=== PATIENT | female | born 1940 | race Caucasian/White ===

== ENCOUNTER 2017-09-05 05:52 | Inpatient (IN) ==
[2017-09-05] MEDS ORDERED: MAGNESIUM SULF RIDER 2 GM in PREMIX 1 EACH IV PRN (06:55)
[2017-09-05] MEDS ORDERED: DIAZEPAM 5 MG TABLET PO ONE (06:55)
[2017-09-05] MEDS ORDERED: ASPIRIN 325 MG TABLET PO ONE (06:55)
[2017-09-05] MEDS ORDERED: POTASSIUM CHLORIDE RIDER 10 MEQ in PREMIX 1 EACH IV PRN (06:55)
[2017-09-05] MEDS ORDERED: diphenhydrAMINE CAP 25 MG CAPSULE PO ONE (06:55)
[2017-09-05] MEDS ORDERED: DIAZEPAM 5 MG TABLET ONE (07:30)
[2017-09-05] MEDS ORDERED: ASPIRIN 325 MG TABLET ONE (07:30)
[2017-09-05] MEDS ORDERED: LIDOCAINE 1% 20 ML VIAL ONE (07:30)
[2017-09-05] MEDS ORDERED: diphenhydrAMINE CAP 25 MG CAPSULE ONE (07:30)
[2017-09-05 07:43] LABS: Basophils # 0.1 10*3/uL (0.0-0.2); Basophils % 0.5 % (0.0-0.8); Eosinophils # 0.3 10*3/uL (0.0-0.87); Eosinophils % 2.8 % (0.00-10.9); Hematocrit 41.8 VOL% (35.7-47.0); Hemoglobin 14.8 GM/DL (12.0-16.0); Immature Granulocytes % 0.3 %; Immature Granulocytes Absolute 0.03 #; Lymphocytes # 1.8 10*3/uL (1.4-4.0); Lymphocytes % 18.3 % (21.3-54.2); Mean Corpuscular HGB Conc 35.4 GM/DL (32-36); Mean Corpuscular Hemoglobin 33 PG (27-34); Mean Corpuscular Volume 91.9 FL (87-102); Mean Platelet Volume 9.4 FL (9.6-12.0); Monocytes # 0.8 10*3/uL (0.11-0.8); Monocytes % 8.1 % (1.7-12.7); Neutrophils # 6.8 10*3/uL (1.4-7.4); Platelet Count 177 T/CUMM (130-400); Red Blood Count 4.55 MC/CUMM (3.8-5.5); Red Cell Distribution Width 11.9 % (9.3-17.3); White Blood Count 9.8 T/CUMM (4-12)
[2017-09-05] MEDS: SODIUM CHLORIDE 0.9% 1,000 ML IV SCH ×2 (07:43→16:43)
[2017-09-05] MEDS ORDERED: HYDROmorphone 2 MG/1 ML VIAL ONE (07:44)
[2017-09-05] MEDS ORDERED: MIDAZOLAM 2 MG/2 ML VIAL ONE (07:44)
[2017-09-05 07:50] LABS: PT Patient Result 10.9 SECS
[2017-09-05] MEDS ORDERED: HEPARIN 5,000 UNIT/1 ML VIAL ONE (07:56)
[2017-09-05] MEDS ORDERED: VERAPAMIL 5 MG/2 ML VIAL ONE (08:01)
[2017-09-05] MEDS ORDERED: NITROGLYCERIN DRIP 50 MG/250 ML BOTTLE IV ONE (08:01)
[2017-09-05 08:22] LABS: Calcium 9.1 MG/DL (8.5-10.1); Magnesium 2.2 MG/DL (1.8-2.4); Potassium 3.6 MMOL/L (3.5-5.1)
[2017-09-05] MEDS ORDERED: NITROGLYCERIN SL 0.4 MG TABLET SL PRN (08:54)
[2017-09-05] MEDS ORDERED: ZALEPLON 5 MG CAPSULE PO PRN (08:54)
[2017-09-05] MEDS ORDERED: ONDANSETRON 4 MG/2 ML VIAL IV PRN (08:54)
[2017-09-05] MEDS ORDERED: CLOPIDOGREL 300 MG TABLET PO ONE (09:17)
[2017-09-05] MEDS: CYANOCOBALAMIN 500 MCG TABLET PO SCH (12:01)
[2017-09-05] MEDS: amLODIPine 10 MG TABLET PO SCH (12:01)
[2017-09-05] MEDS: METOPROLOL SUCCINATE XL 100 MG TABLET PO SCH (12:01)
[2017-09-05] MEDS: ROSUVASTATIN 20 MG TABLET PO SCH (12:02)
[2017-09-05] MEDS: CHOLECALCIFEROL 1,000 UNIT TABLET PO SCH (12:02)
[2017-09-05] MEDS: OMEGA 3 ACID ETHYL ESTERS 1 GM CAPSULE PO SCH ×2 (12:13→20:51)
[2017-09-05] MEDS: CLOPIDOGREL 75 MG TABLET PO SCH (12:13)
[2017-09-05] MEDS: ASPIRIN EC 81 MG TABLET PO SCH (12:13)
[2017-09-05] MEDS ORDERED: GABAPENTIN 300 MG CAPSULE PO SCH (21:00)
[2017-09-06 06:42] LABS: Basophils # 0.1 10*3/uL (0.0-0.2); Basophils % 0.6 % (0.0-0.8); Eosinophils # 0.2 10*3/uL (0.0-0.87); Eosinophils % 2.6 % (0.00-10.9); Hematocrit 41.6 VOL% (35.7-47.0); Hemoglobin 14.8 GM/DL (12.0-16.0); Immature Granulocytes % 0.2 %; Immature Granulocytes Absolute 0.02 #; Lymphocytes # 1.6 10*3/uL (1.4-4.0); Lymphocytes % 18.7 % (21.3-54.2); Mean Corpuscular HGB Conc 35.6 GM/DL (32-36); Mean Corpuscular Hemoglobin 33 PG (27-34); Mean Corpuscular Volume 91.8 FL (87-102); Mean Platelet Volume 9.5 FL (9.6-12.0); Monocytes # 0.9 10*3/uL (0.11-0.8); Neutrophils # 5.9 10*3/uL (1.4-7.4); Neutrophils % 67.9 % (38.7-73.9); Platelet Count 154 T/CUMM (130-400); Red Blood Count 4.53 MC/CUMM (3.8-5.5); Red Cell Distribution Width 11.6 % (9.3-17.3); White Blood Count 8.7 T/CUMM (4-12)
[2017-09-06 07:40] LABS: Calcium 8.9 MG/DL (8.5-10.1); Osmolality,Calculated 280.1 MOS/KG (273-304); Potassium 3.5 MMOL/L (3.5-5.1)
[2017-09-06 07:54] VITALS: BP 138/68
[2017-09-06] MEDS ORDERED: GABAPENTIN 300 MG CAPSULE PO SCH (09:00)
[2017-09-06] MEDS: CLOPIDOGREL 75 MG TABLET PO SCH (09:21)
[2017-09-06] MEDS: CYANOCOBALAMIN 500 MCG TABLET PO SCH (09:25)
[2017-09-06] MEDS: OMEGA 3 ACID ETHYL ESTERS 1 GM CAPSULE PO SCH (09:25)
[2017-09-06] MEDS: ROSUVASTATIN 20 MG TABLET PO SCH (09:25)
[2017-09-06] MEDS: amLODIPine 10 MG TABLET PO SCH (09:25)
[2017-09-06] MEDS: METOPROLOL SUCCINATE XL 100 MG TABLET PO SCH (09:25)
[2017-09-06] MEDS: CHOLECALCIFEROL 1,000 UNIT TABLET PO SCH (09:25)
[2017-09-06] MEDS: ASPIRIN EC 81 MG TABLET PO SCH (09:25)
== END 2017-09-06 10:00 | disposition home or self-care (01) | DRG 272 ==
LOC: N.CL 05:52 → N.5E 08:30
PROVIDERS: ADMIT Internal Medicine Cardiovascular Disease; ATTEND Internal Medicine Cardiovascular Disease

== ENCOUNTER 2021-11-11 11:20 | Inpatient (IN) ==
[2021-11-11 13:11] LABS: Bacteria,Urine Occasional /HPF (Few); Mucus,Urine Occasional /LPF (Occasional); RBC,Urine 39 /HPF (0-4); Squamous Epithelial Cell,Urine Occasional /HPF (0-10)
[2021-11-11 13:12] LABS: Bilirubin,Urine Negative (Negative); Blood, Urine Moderate mg/dL (Negative); Glucose,Urine (UA) Negative (Negative); Ketones,Urine 40 mg/dL (Negative); Nitrite,Urine Negative (Negative); Protein,Urine 2+ mg/dL (Negative); Urine Appearance Clear (Clear); Urine Color Yellow (Yellow); Urine pH 7.5 (4.5-8.0)
[2021-11-11 13:19] LABS: Basophils % 0.2 % (0.0-0.8); Eosinophils % 0.1 % (0.00-10.9); Hematocrit 45.9 VOL% (35.7-47.0); Hemoglobin 16.6 GM/DL (12.0-16.0); Immature Granulocytes % 0.3 %; Immature Granulocytes Absolute 0.05 #; Lymphocytes # 0.9 10*3/uL (1.4-4.0); Lymphocytes % 5.3 % (21.3-54.2); Mean Corpuscular HGB Conc 36.2 GM/DL (32-36); Mean Platelet Volume 9.1 FL (9.6-12.0); Monocytes % 8.3 % (1.7-12.7); Neutrophils % 85.8 % (38.7-73.9); Platelet Count 164 T/CUMM (130-400); Red Cell Distribution Width 11.9 % (9.3-17.3); White Blood Count 16.1 T/CUMM (4-12)
[2021-11-11 13:28] LABS: Calcium 9.4 MG/DL (8.5-10.1); Osmolality,Calculated 278.7 MOS/KG (273-304); Potassium 3.7 MMOL/L (3.5-5.1)
[2021-11-11] MEDS ORDERED: MORPHINE 2 MG/1 ML SYRINGE ONE (13:37)
[2021-11-11] MEDS ORDERED: ONDANSETRON 4 MG/2 ML VIAL ONE (13:37)
[2021-11-11] MEDS ORDERED: ONDANSETRON 4 MG/2 ML VIAL IV STA (13:53)
[2021-11-11] MEDS ORDERED: MORPHINE 4 MG/1 ML VIAL IV STA (13:54)
[2021-11-11] MEDS ORDERED: HYDROmorphone 1 MG/1 ML SYRINGE IV STA (16:45)
[2021-11-11] MEDS ORDERED: hydrALAZINE 20 MG/1 ML VIAL IV PRN (16:59)
[2021-11-11] MEDS ORDERED: DOCUSATE SODIUM 100 MG CAPSULE PO PRN (16:59)
[2021-11-11] MEDS ORDERED: GLUCAGON 1 MG VIAL IM PRN (16:59)
[2021-11-11] MEDS ORDERED: ALBUTEROL 2.5 MG/3 ML NEB RESP TX PRN (16:59)
[2021-11-11] MEDS ORDERED: ACETAMINOPHEN 325 MG TABLET PO PRN (16:59)
[2021-11-11] MEDS ORDERED: DEXTROSE 10% 250 ML BAG IV PRN (17:05)
[2021-11-11] MEDS: SODIUM CHLORIDE 0.9% 1,000 ML IV SCH (18:21)
[2021-11-11] MEDS: cefTRIAXone 1,000 MG in SODIUM CHLORIDE 0.9% 100 ML IV SCH (18:22)
[2021-11-11 18:42] LABS: INR 1.2; PT Patient Result 12.9 SECS (10.5-12.0)
[2021-11-12] MEDS: SODIUM CHLORIDE 0.9% 1,000 ML IV SCH ×2 (03:57→14:30)
[2021-11-12 07:15] LABS: Basophils % 0.2 % (0.0-0.8); Eosinophils % 0.2 % (0.00-10.9); Immature Granulocytes % 0.4 %; Immature Granulocytes Absolute 0.05 #; Lymphocytes # 0.9 10*3/uL (1.4-4.0); Lymphocytes % 7.4 % (21.3-54.2); Mean Corpuscular HGB Conc 35.3 GM/DL (32-36); Mean Corpuscular Volume 93.7 FL (87-102); Mean Platelet Volume 9.3 FL (9.6-12.0); Monocytes % 8.5 % (1.7-12.7); Neutrophils % 83.3 % (38.7-73.9); Red Blood Count 4.27 MC/CUMM (3.8-5.5); Red Cell Distribution Width 11.9 % (9.3-17.3); White Blood Count 11.5 T/CUMM (4-12)
[2021-11-12 07:25] LABS: Hemoglobin 14.1 GM/DL (12.0-16.0); Platelet Count 125 T/CUMM (130-400)
[2021-11-12 07:38] LABS: Calcium 8.3 MG/DL (8.5-10.1); Osmolality,Calculated 278.5 MOS/KG (273-304); Potassium 3.7 MMOL/L (3.5-5.1)
[2021-11-12] MEDS: PANTOPRAZOLE 40 MG TABLET PO SCH (10:47)
[2021-11-12] MEDS: MORPHINE 4 MG/1 ML VIAL IV PRN ×2 (14:31→20:24)
[2021-11-12] MEDS: cefTRIAXone 1,000 MG in SODIUM CHLORIDE 0.9% 100 ML IV SCH (16:41)
[2021-11-13] MEDS: SODIUM CHLORIDE 0.9% 1,000 ML IV SCH ×3 (00:52→23:30)
[2021-11-13] MEDS: METOPROLOL SUCCINATE XL 100 MG TABLET PO SCH (09:43)
[2021-11-13] MEDS: ROSUVASTATIN 20 MG TABLET PO SCH (09:43)
[2021-11-13] MEDS: PANTOPRAZOLE 40 MG TABLET PO SCH (10:05)
[2021-11-13] MEDS: CYANOCOBALAMIN 500 MCG TABLET PO SCH (10:05)
[2021-11-13] MEDS: CHOLECALCIFEROL 1,000 UNIT TABLET PO SCH (10:05)
[2021-11-13] MEDS: OMEGA 3 ACID ETHYL ESTERS 1 GM CAPSULE PO SCH ×2 (10:07→21:09)
[2021-11-13] MEDS: ONDANSETRON 4 MG/2 ML VIAL IV PRN (16:55)
[2021-11-13] MEDS: cefTRIAXone 1,000 MG in SODIUM CHLORIDE 0.9% 100 ML IV SCH (16:56)
[2021-11-13] MEDS: DOCUSATE SODIUM 100 MG CAPSULE PO SCH (21:09)
[2021-11-14] MEDS: ONDANSETRON 4 MG/2 ML VIAL IV PRN ×2 (04:08→08:06)
[2021-11-14 06:16] LABS: Basophils % 0.3 % (0.0-0.8); Eosinophils # 0.2 10*3/uL (0.0-0.87); Eosinophils % 1.2 % (0.00-10.9); Hematocrit 36.6 VOL% (35.7-47.0); Immature Granulocytes % 0.9 %; Immature Granulocytes Absolute 0.12 #; Lymphocytes # 0.5 10*3/uL (1.4-4.0); Mean Corpuscular HGB Conc 35.5 GM/DL (32-36); Mean Platelet Volume 9.5 FL (9.6-12.0); Monocytes % 7.7 % (1.7-12.7); Neutrophils % 85.9 % (38.7-73.9); Platelet Count 127 T/CUMM (130-400); Red Blood Count 3.98 MC/CUMM (3.8-5.5); Red Cell Distribution Width 12.3 % (9.3-17.3); White Blood Count 12.7 T/CUMM (4-12)
[2021-11-14 06:38] LABS: Risk Ratio 6.43; VLDL Cholesterol 26.6 MG/DL
[2021-11-14 07:17] LABS: Eosinophils 1 % (0-10); Lymphocytes 5 % (20-55); Nucleated Red Blood Cells 1 (0-5); Segmented Neutrophils 91 % (50-85); Total Cells Counted 100
[2021-11-14 07:18] LABS: Microcytosis 1+; Platelet Estimate Adequate
[2021-11-14 07:36] LABS: Osmolality,Calculated 272.7 MOS/KG (273-304); Potassium 3.6 MMOL/L (3.5-5.1)
[2021-11-14] MEDS: ROSUVASTATIN 20 MG TABLET PO SCH (09:28)
[2021-11-14] MEDS: OMEGA 3 ACID ETHYL ESTERS 1 GM CAPSULE PO SCH (09:29)
[2021-11-14] MEDS: DOCUSATE SODIUM 100 MG CAPSULE PO SCH (09:31)
[2021-11-14] MEDS: CHOLECALCIFEROL 1,000 UNIT TABLET PO SCH (09:31)
[2021-11-14] MEDS: METOPROLOL SUCCINATE XL 100 MG TABLET PO SCH (09:31)
[2021-11-14] MEDS: CYANOCOBALAMIN 500 MCG TABLET PO SCH (09:32)
[2021-11-14] MEDS: PANTOPRAZOLE 40 MG TABLET PO SCH (09:33)
[2021-11-14] MEDS ORDERED: CYPROHEPTADINE 4 MG TABLET PO SCH (15:00)
[2021-11-14 16:44] VITALS: BP 138/64
== END 2021-11-14 16:57 | disposition home or self-care (01) | DRG 699 ==
LOC: N.ED 11:20 → N.5E 11:20
PROVIDERS: ADMIT Internal Medicine; ATTEND Internal Medicine